=== PATIENT | female | born 1965 | race African-American/Black ===

== ENCOUNTER 2022-05-09 12:49 | Emergency (ER) | payer OTHER ==
[~2022-05-09] VITALS: Ht 170.2 cm; Wt 72.0 kg
[2022-05-09 15:40] LABS: BASOPHILS % 0.4 % (0.0-2.0); EOSINOPHILS % 0.7 % (0.0-5.0); HEMATOCRIT. 40.9 % (36.0-48.0); HEMOGLOBIN. 13.7 g/dL (12.0-16.0); LYMPHOCYTES % 30.8 % (20.0-50.0); MEAN CORPUSCULAR HEMOGLOBIN 29.4 pg (28.0-32.0); MEAN CORPUSCULAR VOLUME 87.6 fL (81.0-99.0); MEAN PLATELET VOLUME 10.1 fl (7.4-10.4); MONOCYTES % 6.3 % (2.0-8.0); NEUTROPHILS % 61.8 % (40.0-76.0); PLATELET 179 x1000/uL (130-400); RED BLOOD CELL COUNT 4.67 mill/uL (4.2-5.4); RED CELL DISTRIBUTION WIDTH 13.5 % (11.6-14.6)
[2022-05-09 15:47] LABS: CHLORIDE 108 mEq/L (98-107)
[2022-05-09 16:33] VITALS: BP 145/78
== END 2022-05-09 16:34 | disposition home or self-care (01) ==
LOC: ER 12:49
DX: R00.2 Palpitations (principal); Z88.1 Allergy status to other antibiotic agents
CPT/HCPCS: 36415; 71045; 80053; 83880; 85025; 99284